=== PATIENT | female | born 1970 | race Caucasian/White ===

== ENCOUNTER 2018-04-11 09:24 | Outpatient (CLI) | payer OTHER ==
--- NOTE | 2018-04-11 12:20 | RAD ---
RIGHT KNEE FOUR VIEWS: History: Right knee injury. FINDINGS: There is subtle irregularity with suggestion of cortical discontinuity involving the lateral tibial s pine with subtle superior displacement. On the lateral view, fluid distends the suprapatellar bursa. No other acute fracture or dislocation are apparent. IMPRESSION: Fluid distention of the joint capsule, in the setting of recent injury, suggests hemarthrosis. Irregu larity of the lateral tibial spine may reflect a subtle ossific avulsion of the posterior cruciate li gament. Clinical correlation regarding other posterior cruciate ligament signs and symptoms is requir ed. MRI could be considered for further evaluation. POS: [facility]
== END 2018-04-11 09:25 | disposition home or self-care (01) ==
LOC: SCSRAD 09:24
PROVIDERS: ATTEND Nurse Practitioner Family
DX: M25.561 Pain in right knee (principal); M25.861 Other specified joint disorders, right knee

== ENCOUNTER 2018-10-31 13:32 | Outpatient (CLI) | payer OTHER ==
--- NOTE | 2018-10-31 16:10 | MRI ---
MRI LUMBAR SPINE WITHOUT CONTRAST 10/31/18 COMPARISON: 10/19/15. HISTORY: Right sided sciatica. Pain radiating down the right hip and buttock. TECHNIQUE: MRI of the lumbar spine is performed without intravenous gadolinium administration. Multisequential, multiplanar imaging is performed. FINDINGS: Appropriate T1 marrow signal intensity lumbar vertebrae. Lumbar spine vertebral body height is mainta ined. There is no fracture. No significant STIR hyperintensity to suggest vertebral body edema or lig amentous injury. Appropriate signal intensity of the psoas muscles. Appropriate signal of the visualized solid organs. Conus medullaris terminates at the inferior aspect of T12. T12-L1: Adequate disc hydration. No significant central canal stenosis or neural foraminal narrowing. L1-L2: Adequate disc hydration. No significant central canal stenosis or neural foraminal narrowing. L2-L3: Adequate disc hydration. Mild ligamentous flavum thickening and facet hypertrophy. No signific ant central canal stenosis. Neural foramina are patent. L3-L4: Adequate disc hydration. No significant posterior disc abnormality. Ligamentum flavum thickeni ng and facet hypertrophy are present. There is no significant central canal stenosis. There is narrow ing of the right subarticular zone secondary to posterior element hypertrophy with partial obscuratio n of the traversing right L nerve root. Left subarticular zone is minimally narrowed. Right neural fo ramen is patent. Left neural foramen is patent. L5-S1: There is minimal desiccation without significant loss of disc space height. Previously noted c entral disc protrusion is less evident. However, there is progression of degenerative change involvin g both facet joints. There is resultant mild central canal stenosis predominantly due to facet hypert rophy. Mild narrowing of both subarticular zones without obscuration of the traversing L5 nerve roots . Mild right foraminal narrowing. Left neural foramen is minimally narrowed. L5-S1: Adequate disc hydration. No significant central canal stenosis. Neural foramina are patent. Ps eudoarthrosis of the left L5 ala with the sacrum is again noted. IMPRESSION: Degenerative changes in the lumbar spine as detailed above. POS: [facility]
== END 2018-10-31 13:33 | disposition home or self-care (01) ==
LOC: BICMRI 13:32
PROVIDERS: ATTEND Chiropractor
DX: Z12.31 Encounter for screening mammogram for malignant neoplasm of breast (principal); M54.31 Sciatica, right side; M47.816 Spondylosis without myelopathy or radiculopathy, lumbar region; R92.1 Mammographic calcification found on diagnostic imaging of breast
CPT/HCPCS: 72148; 77063; 77067